=== PATIENT | male | born 1945 | race Asian ===

== ENCOUNTER → 2017-04-01 | Outpatient (CLI) | payer MEDICARE, OTHER ==
[~2017-04-01] MED LIST: ALLO300T2 PO; LOSARTAN PO; METF500T4 PO; PRAVASTATIN PO
== END | disposition home or self-care (01) ==
LOC: RADPV 10:25
PROVIDERS: ATTEND Internal Medicine
DX: J84.10 Pulmonary fibrosis, unspecified (principal)
CPT/HCPCS: 71020